=== PATIENT | female | born 1940 | race Caucasian/White ===

== ENCOUNTER 2016-08-22 08:44 | Inpatient (IN) | payer MEDICARE ==
[~2016-08-22] VITALS: Ht 165.1 cm; Wt 102.8 kg
[2016-08-22] MEDS ORDERED: BENA40TA2 PO (09:28)
[2016-08-22] MEDS ORDERED: HYDR12.58 PO (09:28)
[2016-08-22] MEDS ORDERED: DILTIAZEM 125 MG in DEXTROSE 5% 100 ML IV SCH (09:32)
[2016-08-22] MEDS ORDERED: DILTIAZEM 5 MG/ML, 5ML ONE ×2 (09:41→10:53)
[2016-08-22] MEDS ORDERED: FUROSEMIDE 40 MG/4 ML ONE (09:50)
[2016-08-22] MEDS ORDERED: DILTIAZEM 5 MG/ML, 5ML IVPush ONE ×2 (10:00→10:30)
[2016-08-22] MEDS ORDERED: ENOXAPARIN 100 MG/ML SQ ONE (10:00)
[2016-08-22] MEDS ORDERED: SODIUM CHLORIDE FLUSH 10ML SYR IVF ONE (10:00)
[2016-08-22] MEDS ORDERED: FUROSEMIDE 40 MG/4 ML IVPush ONE (10:00)
[2016-08-22 10:30] LABS: ASPARTATE AMINO TRANSFERASE 65 U/L (15-37); BLOOD UREA NITROGEN 18 mg/dL (7-18)
[2016-08-22 10:41] LABS: IS PT STATUS REG ER OR PRE ER? YES
[2016-08-22] MEDS ORDERED: ONDANSETRON 2MG/ML, 2ML IVPush PRN ×2 (11:00→12:00)
[2016-08-22] MEDS ORDERED: DILTIAZEM 5 MG/ML, 5ML IV ONE (11:00)
[2016-08-22] MEDS ORDERED: SODIUM CHLORIDE FLUSH 10ML SYR IVF PRN (11:00)
[2016-08-22] MEDS ORDERED: DIPHENHYDRAMINE 50 MG/ML, 1ML ONE (11:31)
[2016-08-22] MEDS ORDERED: PROCHLORPERAZINE 5 MG/ML, 2ML ONE (11:31)
[2016-08-22] MEDS ORDERED: morphine SULFATE 10 MG/ML, 1ML IVPush PRN (12:00)
[2016-08-22] MEDS ORDERED: BISACODYL 10 MG SUPP PR PRN (12:00)
[2016-08-22] MEDS ORDERED: HYDROcodone/APAP 5/325 TABLET PO PRN (12:00)
[2016-08-22] MEDS ORDERED: DIGOXIN 0.25 MG/ML, 2ML ONE (12:00)
[2016-08-22] MEDS ORDERED: DIGOXIN 0.25 MG/ML, 2ML IVPush ONE (12:00)
[2016-08-22] MEDS ORDERED: MAGNESIUM SULFATE PMX 2GM/50ML 50 ML IV ONE (12:00)
[2016-08-22] MEDS ORDERED: POLYETHYLENE GLYCOL 17 GM PACKET PO PRN (12:00)
[2016-08-22] MEDS ORDERED: ENALAPRILAT 1.25 MG/ML, 2ML IVPush PRN (12:00)
[2016-08-22] MEDS ORDERED: ACETAMINOPHEN 325 MG TABLET PO PRN (12:00)
[2016-08-22] MEDS ORDERED: DOCUSATE 100 MG CAPSULE PO PRN (12:00)
[2016-08-22] MEDS ORDERED: DILTIAZEM 125 MG in SODIUM CHLORIDE 0.9% 100 ML IV PRN (15:35)
[2016-08-22 15:45] VITALS: BP 114/74
[2016-08-22 18:52] VITALS: BP 98/53
[2016-08-22] MEDS ORDERED: HEPARIN 5,000 UNITS/ML, 1ML IV ONE (22:00)
[2016-08-22] MEDS: SODIUM CHLORIDE FLUSH 10ML SYR IVF SCH (22:35)
[2016-08-22] MEDS: HEPARIN 25,000 UNITS/500ML PMX 500 ML IV PRN (22:41)
[2016-08-23] MEDS ORDERED: DILTIAZEM 125 MG in SODIUM CHLORIDE 0.9% 100 ML IV SCH (01:00)
[2016-08-23 02:40] VITALS: BP 108/69
[2016-08-23 05:22] LABS: ASPARTATE AMINO TRANSFERASE 59 U/L (15-37); BLOOD UREA NITROGEN 23 mg/dL (7-18)
[2016-08-23 07:55] VITALS: BP 145/81
[2016-08-23] MEDS ORDERED: DILTIAZEM 125 MG in DEXTROSE 5% 100 ML IV SCH (09:32)
[2016-08-23] MEDS: NYSTATIN TOPICAL POWDER 15GM TP SCH ×3 (11:00→22:42)
[2016-08-23] MEDS: SODIUM CHLORIDE FLUSH 10ML SYR IVF SCH ×2 (12:28→21:24)
[2016-08-23] MEDS: HYDROCHLOROTHIAZIDE 12.5 MG CAPSULE PO SCH (12:29)
[2016-08-23] MEDS: BENAZEPRIL 20 MG TABLET PO SCH (12:29)
[2016-08-23 13:45] VITALS: BP 140/82
[2016-08-23] MEDS: METOPROLOL TARTRATE 25 MG TABLET PO SCH ×3 (15:41→17:41)
[2016-08-23 21:00] VITALS: BP 135/87
[2016-08-23] MEDS: HEPARIN 5,000 UNITS/ML, 1ML IV PRN (21:24)
[2016-08-24] MEDS: HEPARIN 25,000 UNITS/500ML PMX 500 ML IV PRN (00:31)
[2016-08-24] MEDS ORDERED: DILTIAZEM 125 MG in SODIUM CHLORIDE 0.9% 100 ML IV SCH (01:00)
[2016-08-24 02:05] VITALS: BP 116/88
[2016-08-24] MEDS: METOPROLOL TARTRATE 25 MG TABLET PO SCH (06:22)
[2016-08-24 07:33] VITALS: BP 154/87
[2016-08-24] MEDS: BENAZEPRIL 20 MG TABLET PO SCH (08:45)
[2016-08-24] MEDS: HYDROCHLOROTHIAZIDE 12.5 MG CAPSULE PO SCH (08:45)
[2016-08-24] MEDS: NYSTATIN TOPICAL POWDER 15GM TP SCH (08:48)
[2016-08-24] MEDS: SODIUM CHLORIDE FLUSH 10ML SYR IVF SCH (08:50)
[2016-08-24] MEDS: HEPARIN 5,000 UNITS/ML, 1ML IV PRN (11:00)
[2016-08-24] MEDS ORDERED: PROPOFOL 10 MG/ML, 20ML ONE (12:03)
[2016-08-24] MEDS ORDERED: AMIODARONE 150 MG in DEXTROSE 5% 100 ML IV ONE (12:30)
[2016-08-24] MEDS ORDERED: FILTER 0.22 MICRON IV ONE (12:30)
[2016-08-24 14:19] VITALS: BP 137/71
[2016-08-24] MEDS ORDERED: APIX5TAB PO (17:18)
[2016-08-24] MEDS ORDERED: AMIO200T42 PO (17:18)
[2016-08-24] MEDS ORDERED: AMIODARONE 200 MG TABLET PO SCH (21:00)
== END 2016-08-24 18:51 | disposition home or self-care (01) | DRG 309 ==
LOC: ED 10:30 → EDIP 11:00 → 5SO 15:30
PROVIDERS: ADMIT Internal Medicine
PROC: B24BZZ4 Ultrasonography of Heart with Aorta, Transesophageal (ICD-10-PCS; 2016-08-24)
PROC: 5A2204Z Restoration of Cardiac Rhythm, Single (ICD-10-PCS; principal; 2016-08-24 14:00)
DX: I48.91 Unspecified atrial fibrillation (principal); D68.69 Other thrombophilia; J44.9 Chronic obstructive pulmonary disease, unspecified; I11.9 Hypertensive heart disease without heart failure; R00.1 Bradycardia, unspecified; R74.0 Nonspecific elevation of levels of transaminase and lactic acid dehydrogenase [LDH]; L89.309 Pressure ulcer of unspecified buttock, unspecified stage; Z85.3 Personal history of malignant neoplasm of breast; Z87.891 Personal history of nicotine dependence; Z98.42 Cataract extraction status, left eye; Z98.41 Cataract extraction status, right eye; Z90.49 Acquired absence of other specified parts of digestive tract; Z90.10 Acquired absence of unspecified breast and nipple; Z79.899 Other long term (current) drug therapy
CPT/HCPCS: 36415; 71010; 80053; 82962; 83735; 83880; 84443; 84484; 85025; 85520; 85610; 92960; 93005; 93306; 93312; 93321; 93325; 96372; 96374; 96375; 96376; J1644; J1650; J1940; J2704; J0282; J1160; J3475

== ENCOUNTER 2016-09-21 07:02 | Day surgery (SDC) | payer MEDICARE ==
[~2016-09-21] VITALS: Ht 165.1 cm; Wt 98.4 kg
[~2016-09-21 07:02] MED LIST: AMIO200T42 PO; APIX5TAB PO; BENA40TA2 PO; HYDR12.58 PO
[2016-09-21 07:32] VITALS: BP 138/107
[2016-09-21] MEDS ORDERED: TRIA16.911 NAS (07:57)
[2016-09-21] MEDS ORDERED: HYDR12.53 PO (07:57)
[2016-09-21] MEDS ORDERED: APIX5TAB PO (07:57)
[2016-09-21] MEDS ORDERED: ASPI-496 PO (07:57)
[2016-09-21] MEDS ORDERED: BENA40TA2 PO (07:57)
[2016-09-21] MEDS ORDERED: AMIO200T42 PO (07:57)
[2016-09-21] MEDS ORDERED: FLUT1AER3 PO (07:57)
[2016-09-21 08:56] LABS: BLOOD UREA NITROGEN 20 mg/dL (7-18)
[2016-09-21] MEDS ORDERED: PROPOFOL 10 MG/ML, 20ML ONE (09:03)
== END 2016-09-21 09:06 ==
LOC: CACL 07:02
PROVIDERS: ATTEND Internal Medicine Cardiovascular Disease
DX: I48.91 Unspecified atrial fibrillation (principal); I10 Essential (primary) hypertension; Z79.82 Long term (current) use of aspirin
CPT/HCPCS: 36415; 80048; 92960; J2704

== ENCOUNTER → 2016-10-20 | Outpatient (CLI) | payer MEDICARE ==
[~2016-10-20] MED LIST changes: +ASPI-496 PO; +FLUT15.88 NAS; +FLUT1AER3 PO; +HYDR12.53 PO; +TRAM-47 PO; +TRIA16.911 NAS
[2016-10-20 12:22] LABS: HEMATOCRIT 48.4 % (34.6-47.8); HEMOGLOBIN 16.1 g/dL (11.7-16.4); WHITE BLOOD COUNT 6.1 x10^3/uL (3.4-10)
[2016-10-20 12:34] LABS: BLOOD UREA NITROGEN 13 mg/dL (7-18)
[2016-10-20 12:37] LABS: ASPARTATE AMINO TRANSFERASE 26 U/L (15-37)
== END | disposition home or self-care (01) ==
LOC: STAR 10:44
PROVIDERS: ATTEND Internal Medicine Cardiovascular Disease
DX: Z01.818 Encounter for other preprocedural examination (principal); R79.1 Abnormal coagulation profile
CPT/HCPCS: 36415; 71020; 80053; 85025; 85610

== ENCOUNTER 2016-10-25 06:27 | Observation (INO) | payer MEDICARE ==
[2016-10-20 11:16] VITALS: BP 133/94
[~2016-10-25] VITALS: Ht 165.1 cm; Wt 100.5 kg
[~2016-10-25 06:27] MED LIST changes: -TRAM-47 PO
[2016-10-25] MEDS ORDERED: SODIUM CHLORIDE 0.9% 1,000 ML IV SCH ×2 (06:51→06:55)
[2016-10-25] MEDS ORDERED: CEFAZOLIN PMX 1GM/50ML 50 ML IVPB ONE (07:00)
[2016-10-25] MEDS ORDERED: LIDOCAINE 2%, 20ML ONE (08:27)
[2016-10-25] MEDS ORDERED: FENTANYL PF 100 MCG/2ML ONE (08:27)
[2016-10-25] MEDS ORDERED: CEFAZOLIN PMX 1GM/50ML 50 ML ONE (08:27)
[2016-10-25] MEDS ORDERED: MIDAZOLAM 1 MG/ML, 5ML ONE (08:27)
[2016-10-25] MEDS ORDERED: CEFAZOLIN 1,000 MG ONE (08:28)
[2016-10-25] MEDS ORDERED: ACETAMINOPHEN 325 MG TABLET PO PRN (10:30)
[2016-10-25] MEDS ORDERED: HYDROcodone/APAP 5/325 TABLET PO PRN (10:30)
[2016-10-25 12:36] VITALS: BP 134/87
[2016-10-25 14:00] VITALS: BP 132/72
[2016-10-25] MEDS: CEFAZOLIN PMX 1GM/50ML 50 ML IVPB SCH (17:01)
[2016-10-25 19:53] VITALS: BP 138/76
[2016-10-25] MEDS ORDERED: ZOLPIDEM 5MG TABLET PO PRN (21:00)
[2016-10-25] MEDS: SODIUM CHLORIDE FLUSH 10ML SYR IVF SCH (21:00)
[2016-10-26] MEDS: CEFAZOLIN PMX 1GM/50ML 50 ML IVPB SCH (00:13)
[2016-10-26 01:13] VITALS: BP 134/78
[2016-10-26 07:38] VITALS: BP 131/85
[2016-10-26] MEDS ORDERED: TRAM-47 PO (08:09)
[2016-10-26] MEDS: SODIUM CHLORIDE FLUSH 10ML SYR IVF SCH (08:51)
[2016-10-26] MEDS ORDERED: FLUTICASONE NASAL SPRAY 16GM NAS SCH (09:00)
[2016-10-26] MEDS ORDERED: ASPIRIN 81 MG TABLET EC PO SCH (09:00)
[2016-10-26] MEDS ORDERED: HYDROCHLOROTHIAZIDE 12.5 MG CAPSULE PO SCH (09:00)
[2016-10-26] MEDS ORDERED: BENAZEPRIL 20 MG TABLET PO SCH (09:00)
== END 2016-10-26 09:50 | disposition home or self-care (01) ==
LOC: CACL 06:27 → ORIP 10:17 → 5SO 10:59 → DCLOUNGE 10-26 09:35
PROVIDERS: ADMIT Internal Medicine Cardiovascular Disease; ATTEND Internal Medicine Cardiovascular Disease
DX: I49.5 Sick sinus syndrome (principal); I44.2 Atrioventricular block, complete; I48.91 Unspecified atrial fibrillation; J44.9 Chronic obstructive pulmonary disease, unspecified; I10 Essential (primary) hypertension
CPT/HCPCS: 33207; 71010; 93650; 96365; 96375; 99156; 99157; C1779; C1786; C1894; C2630; G0378; J0690; J2250; J3010; J3490

== ENCOUNTER 2017-01-10 12:23 | Emergency (ER) | payer MEDICARE ==
[~2017-01-10] VITALS: Ht 165.1 cm; Wt 97.6 kg
[~2017-01-10 12:23] MED LIST changes: +AZIT500T5 PO; +CEFD300C37 PO; +FLUT1BLS INH; +PRED10TA PO; +TRAM-47 PO
[2017-01-10 12:24] VITALS: BP 137/83
[2017-01-10 13:19] LABS: HEMATOCRIT 42.7 % (34.6-47.8); HEMOGLOBIN 14.4 g/dL (11.7-16.4); WHITE BLOOD COUNT 6.7 x10^3/uL (3.4-10)
[2017-01-10 13:31] LABS: BLOOD UREA NITROGEN 17 mg/dL (7-18)
[2017-01-10 13:37] LABS: ASPARTATE AMINO TRANSFERASE 15 U/L (15-37)
[2017-01-10 13:38] LABS: IS PT STATUS REG ER OR PRE ER? YES
== END 2017-01-10 15:03 | disposition home or self-care (01) ==
LOC: ED 14:37
DX: J15.9 Unspecified bacterial pneumonia (principal); J44.0 Chronic obstructive pulmonary disease with (acute) lower respiratory infection; F17.200 Nicotine dependence, unspecified, uncomplicated; Z95.0 Presence of cardiac pacemaker
CPT/HCPCS: 36415; 71020; 80053; 83880; 84484; 85025; 93005

== ENCOUNTER → 2017-10-30 | Outpatient (CLI) | payer MEDICARE ==
[~2017-10-30] MED LIST changes: -BENA40TA2 PO; +BENA40TA3 PO
== END | disposition home or self-care (01) ==
LOC: RAD 09:53
PROVIDERS: ATTEND Family Medicine
DX: G93.89 Other specified disorders of brain (principal); J44.9 Chronic obstructive pulmonary disease, unspecified; F17.210 Nicotine dependence, cigarettes, uncomplicated; Z85.3 Personal history of malignant neoplasm of breast
CPT/HCPCS: 70450

== ENCOUNTER 2017-11-02 11:16 | Emergency (ER) | payer MEDICARE ==
[~2017-11-02] VITALS: Ht 165.1 cm; Wt 99.0 kg
[2017-11-02 12:45] LABS: BASOPHILS # (AUTO) 0.04 x10^3/uL (0-0.1); BASOPHILS % (AUTO) 1 % (0-1); EOSINOPHILS # (AUTO) 0.08 x10^3/uL (0-0.4); EOSINOPHILS % (AUTO) 1 % (1-7); LYMPHOCYTES # (AUTO) 1.54 x10^3/uL (1-3.4); LYMPHOCYTES % (AUTO) 21 % (22-44); MD NO; MEAN CORPUSCULAR HEMOGLOBIN 31.6 pg (27.0-34.8); MEAN CORPUSCULAR HGB CONC 34.1 g/dL (32.4-35.8); MEAN CORPUSCULAR VOLUME 92.7 fL (80-100); MEAN PLATELET VOLUME 8.2 fL (7.4-10.4); MONOCYTES # (AUTO) 0.68 x10^3/uL (0.2-0.8); MONOCYTES % (AUTO) 9 % (2-9); NEUTROPHILS # (AUTO) 5.07 x10^3/uL (1.8-6.8); NEUTROPHILS % (AUTO) 68 % (42-75); PLATELET COUNT 167 x10^3/uL (130-400); RED BLOOD COUNT 5.07 x10^6/uL (3.82-5.3); RED CELL DISTRIBUTION WIDTH 14.5 % (9.6-15.2)
[2017-11-02 12:53] LABS: MICROSCOPIC AUTO
[2017-11-02 12:57] LABS: CHLORIDE 111 mmol/L (98-107)
[2017-11-02 13:00] LABS: CULTURE INDICATED? YES
[2017-11-02 13:03] LABS: ALANINE AMINOTRANSFERASE 20 U/L (12-78); ALBUMIN 3.7 g/dL (3.4-5.0); ALKALINE PHOSPHATASE 85 U/L (45-117); ANION GAP 8 mmol/L (5-15); BILIRUBIN,TOTAL 0.3 mg/dL (0.2-1.0); CALCIUM 9.2 mg/dL (8.5-10.1); CREATININE 0.84 mg/dL (0.55-1.02); TOTAL PROTEIN 7.1 g/dL (6.4-8.2)
[2017-11-02 13:57] VITALS: BP 159/63
== END 2017-11-02 14:08 | disposition home or self-care (01) ==
LOC: ED 14:00
DX: N30.00 Acute cystitis without hematuria (principal); I48.91 Unspecified atrial fibrillation; I11.0 Hypertensive heart disease with heart failure; I50.9 Heart failure, unspecified; J44.9 Chronic obstructive pulmonary disease, unspecified; F17.200 Nicotine dependence, unspecified, uncomplicated
CPT/HCPCS: 36415; 80053; 81001; 85025; 87077; 87086; 87186; 93005; 99285

== ENCOUNTER → 2017-11-13 | Outpatient (CLI) | payer MEDICARE ==
[~2017-11-13] MED LIST changes: +OMNIPAQUE 350 MG/ML, 100ML BOTTLE ONE
== END | disposition home or self-care (01) ==
LOC: RAD 13:21
PROVIDERS: ATTEND Family Medicine
DX: G93.89 Other specified disorders of brain (principal); J34.1 Cyst and mucocele of nose and nasal sinus; R60.9 Edema, unspecified
CPT/HCPCS: 70460; Q9967

== ENCOUNTER 2017-11-16 12:26 | Inpatient (IN) | payer MEDICARE ==
[~2017-11-16] VITALS: Ht 165.1 cm; Wt 101.1 kg
[~2017-11-16 12:26] MED LIST changes: -OMNIPAQUE 350 MG/ML, 100ML BOTTLE ONE
[2017-11-16] MEDS ORDERED: SODIUM CHLORIDE 0.9% 1,000 ML IV ONE (12:36)
[2017-11-16 12:56] LABS: BASOPHILS # (AUTO) 0.03 x10^3/uL (0-0.1); BASOPHILS % (AUTO) 1 % (0-1); EOSINOPHILS # (AUTO) 0.08 x10^3/uL (0-0.4); EOSINOPHILS % (AUTO) 1 % (1-7); LYMPHOCYTES # (AUTO) 1.52 x10^3/uL (1-3.4); LYMPHOCYTES % (AUTO) 25 % (22-44); MD NO; MEAN CORPUSCULAR VOLUME 91.3 fL (80-100); MEAN PLATELET VOLUME 8.6 fL (7.4-10.4); MONOCYTES # (AUTO) 0.53 x10^3/uL (0.2-0.8); MONOCYTES % (AUTO) 9 % (2-9); NEUTROPHILS # (AUTO) 4.05 x10^3/uL (1.8-6.8); NEUTROPHILS % (AUTO) 65 % (42-75); PLATELET COUNT 163 x10^3/uL (130-400); RED BLOOD COUNT 4.84 x10^6/uL (3.82-5.3)
[2017-11-16] MEDS ORDERED: SODIUM CHLORIDE FLUSH 10ML SYR IVF ONE (13:00)
[2017-11-16] MEDS ORDERED: DEXAMETHASONE 4 MG/ML, 1ML IVPush ONE (13:00)
[2017-11-16 13:08] LABS: INTERNATIONAL NORMALIZED RATIO 1.23 (0.93-1.1); PROTHROMBIN TIME 12.6 Seconds (9.6-11.5)
[2017-11-16 13:09] LABS: ALBUMIN 3.7 g/dL (3.4-5.0); ANION GAP 5 mmol/L (5-15); CALCIUM 8.5 mg/dL (8.5-10.1); CHLORIDE 113 mmol/L (98-107)
[2017-11-16 13:13] LABS: ALANINE AMINOTRANSFERASE 21 U/L (12-78); ALKALINE PHOSPHATASE 82 U/L (45-117); BILIRUBIN,TOTAL 0.3 mg/dL (0.2-1.0); CREATININE 0.95 mg/dL (0.55-1.02); TOTAL PROTEIN 6.9 g/dL (6.4-8.2)
[2017-11-16] MEDS ORDERED: SODIUM CHLORIDE FLUSH 10ML SYR IVF PRN (13:30)
[2017-11-16] MEDS ORDERED: DEXAMETHASONE 4 MG/ML, 1ML ONE (13:49)
[2017-11-16] MEDS ORDERED: DOCUSATE 100 MG CAPSULE PO PRN (14:00)
[2017-11-16] MEDS ORDERED: ONDANSETRON 2MG/ML, 2ML IVPush PRN (14:00)
[2017-11-16] MEDS: DEXAMETHASONE 4 MG/ML, 1ML IVPush SCH ×2 (14:14→20:42)
[2017-11-16 14:20] LABS: BASOPHILS # (AUTO) 0.03 x10^3/uL (0-0.1); BASOPHILS % (AUTO) 1 % (0-1); EOSINOPHILS # (AUTO) 0.09 x10^3/uL (0-0.4); EOSINOPHILS % (AUTO) 1 % (1-7); LYMPHOCYTES # (AUTO) 1.05 x10^3/uL (1-3.4); LYMPHOCYTES % (AUTO) 15 % (22-44); MD NO; MEAN CORPUSCULAR HEMOGLOBIN 30.9 pg (27.0-34.8); MEAN CORPUSCULAR HGB CONC 33.5 g/dL (32.4-35.8); MEAN CORPUSCULAR VOLUME 92.2 fL (80-100); MEAN PLATELET VOLUME 8.5 fL (7.4-10.4); MONOCYTES # (AUTO) 0.52 x10^3/uL (0.2-0.8); MONOCYTES % (AUTO) 8 % (2-9); NEUTROPHILS # (AUTO) 5.22 x10^3/uL (1.8-6.8); NEUTROPHILS % (AUTO) 76 % (42-75); PLATELET COUNT 158 x10^3/uL (130-400); RED BLOOD COUNT 4.73 x10^6/uL (3.82-5.3); RED CELL DISTRIBUTION WIDTH 14.7 % (9.6-15.2)
[2017-11-16] MEDS: NICOTINE 7 MG/24 HR PATCH.TD24 TD SCH (17:27)
[2017-11-16 18:35] VITALS: BP 128/76
[2017-11-16] MEDS: LEVETIRACETAM 500 MG TABLET PO SCH (20:43)
[2017-11-16] MEDS ORDERED: LEVETIRACETAM 500 MG TABLET PO SCH (21:00)
[2017-11-17 00:54] VITALS: BP 108/71
[2017-11-17] MEDS: DEXAMETHASONE 4 MG/ML, 1ML IVPush SCH ×4 (02:44→20:13)
[2017-11-17 05:36] LABS: CHLORIDE 111 mmol/L (98-107)
[2017-11-17 05:46] LABS: ALANINE AMINOTRANSFERASE 21 U/L (12-78); ALBUMIN 3.6 g/dL (3.4-5.0); ALKALINE PHOSPHATASE 90 U/L (45-117); ANION GAP 7 mmol/L (5-15); BILIRUBIN,TOTAL 0.3 mg/dL (0.2-1.0); CALCIUM 9.2 mg/dL (8.5-10.1); CREATININE 0.85 mg/dL (0.55-1.02); TOTAL PROTEIN 7.2 g/dL (6.4-8.2)
[2017-11-17 07:25] VITALS: BP 147/69
[2017-11-17] MEDS: LEVETIRACETAM 500 MG TABLET PO SCH ×2 (08:24→20:13)
[2017-11-17] MEDS: FLUTICASONE/VILANTEROL 200-25MCG/INH INH SCH (08:24)
[2017-11-17] MEDS: BENAZEPRIL 20 MG TABLET PO SCH (08:24)
[2017-11-17] MEDS ORDERED: BENAZEPRIL 20 MG TABLET PO SCH (09:00)
[2017-11-17 13:47] VITALS: BP 112/70
[2017-11-17] MEDS: NICOTINE 7 MG/24 HR PATCH.TD24 TD SCH (14:01)
[2017-11-17] MEDS: ACETAMINOPHEN 325 MG TABLET PO PRN ×2 (16:16→23:46)
[2017-11-17 18:45] VITALS: BP 107/69
[2017-11-18 01:10] VITALS: BP 109/65
[2017-11-18] MEDS: DEXAMETHASONE 4 MG/ML, 1ML IVPush SCH ×2 (02:22→08:44)
[2017-11-18] MEDS: FLUTICASONE/VILANTEROL 200-25MCG/INH INH SCH (08:26)
[2017-11-18 08:31] VITALS: BP 138/86
[2017-11-18] MEDS: BENAZEPRIL 20 MG TABLET PO SCH (08:43)
[2017-11-18] MEDS: LEVETIRACETAM 500 MG TABLET PO SCH (08:43)
[2017-11-18] MEDS ORDERED: LEVE500T53 PO (08:58)
[2017-11-18] MEDS ORDERED: METH4TAB6 PO (08:58)
[2017-11-18] MEDS ORDERED: methylPREDNISolone 4mg DOSE PACK PO SCH (11:00)
== END 2017-11-18 11:52 | disposition home health service (06) | DRG 70 ==
LOC: SUATTDRO 13:22 → ED 13:25 → EDIP 13:26 → ED 13:59 → 3NW 14:48
PROVIDERS: ADMIT Internal Medicine; ATTEND Internal Medicine
DX: G93.9 Disorder of brain, unspecified (principal); G93.6 Cerebral edema; I13.0 Hypertensive heart and chronic kidney disease with heart failure and stage 1 through stage 4 chronic kidney disease, or unspecified chronic kidney disease; I48.2 Chronic atrial fibrillation; E78.5 Hyperlipidemia, unspecified; F17.210 Nicotine dependence, cigarettes, uncomplicated; I25.2 Old myocardial infarction; I50.9 Heart failure, unspecified; J43.9 Emphysema, unspecified; M21.372 Foot drop, left foot; G40.89 Other seizures; N18.9 Chronic kidney disease, unspecified; Z79.01 Long term (current) use of anticoagulants; Z85.3 Personal history of malignant neoplasm of breast; Z87.01 Personal history of pneumonia (recurrent); Z95.0 Presence of cardiac pacemaker; E66.9 Obesity, unspecified; Z68.37 Body mass index [BMI] 37.0-37.9, adult; R26.9 Unspecified abnormalities of gait and mobility
CPT/HCPCS: 36415; 71260; 74177; 80053; 85025; 85610; 85730; 93005; 99285; G0378; J1100; J7509; J7030